=== PATIENT | female | born 1960 | race Caucasian/White ===

== ENCOUNTER 2023-07-25 12:48 | Day surgery (SDC) | payer OTHER ==
[2023-07-23 14:41] VITALS: BMI 26.4
[2023-07-25] MEDS ORDERED: BACITRACIN ZINC 15 GM TUBE TOPICAL OINTMENT ONE (13:05)
[2023-07-25] MEDS ORDERED: LIDOCAINE 1%/EPI 1:100000 (50 ML MULTI DOSE VIAL) ONE (13:05)
[2023-07-25] MEDS ORDERED: PROPOFOL 40 ML ONE (13:40)
[2023-07-25] MEDS ORDERED: KETAMINE HCL 100 MG/ML - 5ML VIAL ONE (13:40)
[2023-07-25] MEDS ORDERED: ONDANSETRON 4 MG/2 ML VIAL ONE (13:40)
[2023-07-25] MEDS ORDERED: ceFAZolin SODIUM 1 GM VIAL ONE (13:40)
[2023-07-25] MEDS ORDERED: MIDAZOLAM HCL 2 MG/2 ML SINGLE DOSE VIAL ONE (13:40)
[2023-07-25] MEDS ORDERED: PROPOFOL 20 ML ONE (13:47)
[2023-07-25] MEDS ORDERED: DEXAMETHASONE SOD PHOSPHATE 4 MG/1 ML VIAL ONE (14:08)
[2023-07-25] MEDS ORDERED: oxyCODONE HCL 5 MG TABLET PO PRN ×3 (14:59→15:02)
[2023-07-25] MEDS ORDERED: ONDANSETRON 4 MG/2 ML VIAL IVPUSH PRN (14:59)
[2023-07-25] MEDS ORDERED: PROMETHAZINE HCL 25 MG/1 ML VIAL IVPB PRN (14:59)
[2023-07-25] MEDS ORDERED: LACTATED RINGERS SOLUTION 1,000 ML IV SCH ×2 (15:00→15:15)
[2023-07-25] MEDS ORDERED: ONDANSETRON 4 MG/2 ML VIAL IVPB PRN (15:02)
[2023-07-25 15:47] VITALS: RESP 16; TEMP 97.8
[2023-07-25 16:27] VITALS: BP 128/72; PULSE 58
== END 2023-07-25 16:00 | disposition home or self-care (01) ==
LOC: FASU 12:48
PROVIDERS: ATTEND Plastic Surgery
PROC: 0HX1XZZ Transfer Face Skin, External Approach (ICD-10-PCS; 2023-07-25)
PROC: 09UK07Z Supplement Nasal Mucosa and Soft Tissue with Autologous Tissue Substitute, Open Approach (ICD-10-PCS; principal; 2023-07-25 14:16)
DX: C44.311 Basal cell carcinoma of skin of nose (principal)
CPT/HCPCS: 94760